=== PATIENT | male | born 1940 | race Caucasian/White ===

== ENCOUNTER 2016-09-29 12:41 | Emergency (ER) | payer MEDICARE, OTHER ==
[~2016-09-29] VITALS: Ht 182.9 cm; Wt 105.0 kg
[2016-09-29 12:44] VITALS: BP 90/46; PULSE 91; RESP 15; O2SAT 97
[2016-09-29] MEDS ORDERED: ZYL100 PO (13:00)
[2016-09-29] MEDS ORDERED: LISI-567 PO (13:00)
[2016-09-29] MEDS ORDERED: TRAZ-115 PO (13:00)
[2016-09-29] MEDS ORDERED: INSU100I28 SQ (13:00)
[2016-09-29] MEDS ORDERED: INSU100C8 SUBQ (13:00)
[2016-09-29] MEDS ORDERED: DESL5TAB PO (13:00)
[2016-09-29] MEDS ORDERED: MONT10TA23 PO (13:00)
[2016-09-29] MEDS ORDERED: UMEC1DIS IH (13:00)
[2016-09-29] MEDS ORDERED: ASPI-973 PO (13:00)
[2016-09-29] MEDS ORDERED: DULA1.5P SQ (13:00)
[2016-09-29] MEDS ORDERED: OMEP20TA24 PO (13:00)
[2016-09-29] MEDS ORDERED: LOVA20TA PO (13:00)
[2016-09-29] MEDS ORDERED: MOME17SP NS (13:00)
[2016-09-29] MEDS ORDERED: ALBU8.5H2 INHALATION (13:00)
[2016-09-29 13:41] LABS: BASOPHILS % (AUTO) 0.3 % (0-3); EOSINOPHILS % (AUTO) 2.6 % (0-5); MONOCYTES % (AUTO) 9.7 % (4-12); Mean Corpuscular Hemoglobin 29.1 pg (27.0-35.0); Mean Corpuscular Volume 90.8 fL (81-100); NEUTROPHILS % (AUTO) 78.5 % (40-74); Platelet Count 258 bil/L (150-400)
[2016-09-29 13:57] LABS: Magnesium 1.7 mg/dL (1.6-2.6)
[2016-09-29] MEDS ORDERED: 0.9% Sodium Chloride 1,000 ML IV SCH (14:50)
--- NOTE | 2016-09-29 14:54 | ED.REPORT ---
HPI-Dizziness / Weakness Date of Service Sep 29, 2016 ED Provider: Yao Anna PA-C Vishnu is a 76-year-old male with a history of diabetes presenting with a chief complaint of low blood pressure. Patient reports becoming weak and lightheaded after stepping out of his vehicle this morning. Sensation subsided after sitting down for a while. Noted low blood pressure on his home device. Patient states that he is traveling, staying in his RV. 2 weeks ago while in [place] he underwent a cholecystectomy and was discharged from the hospital on ciprofloxacin and an unknown second antibiotic. He reports taking these diligently for 10 days, which resulted in diarrhea. He states the diarrhea continues. He reports he has been restricting fluid intake in an attempt to reduce diarrhea. Denies other complaints. Nursing Notes Stated Complaint: POSSIBLE LOW BLOOD PRESSURE Chief Complaint: Male Abdominal Pain Nursing Notes Reviewed: Yes Allergies: Coded Allergies: No Known Allergies (Unverified , 09/29/16) Scheduled Albuterol HFA (Proair HFA) 8.5 Gm Hfa.aer.ad 2 PUFFS INHALATION Q4H Allopurinol (Allopurinol) 100 Mg Tablet 100 MG PO DAILY Aspirin (Aspirin) 81 Mg Tablet 81 MG PO DAILY Desloratadine (Desloratadine) 5 Mg Tab.rapdis 5 MG PO am Dulaglutide (Trulicity) 1.5 Mg/0.5 Ml Pen.injctr 1.5 MG SQ WEEKLY Insulin Aspart (NovoLOG U100 Insulin Vial) 100 U/Ml U 1 UNIT SUBQ TID Insulin Degludec (Tresiba Flextouch U-100) 100 Unit/Ml (3 Ml) Insuln.pen 40 UNIT SQ HS Lisinopril (Lisinopril) 20 Mg Tablet 20 MG PO DAILY Lovastatin (Lovastatin) 20 Mg Tablet 20 MG PO HS Montelukast (Montelukast) 10 Mg Tablet 10 MG PO am Omeprazole Magnesium (Prilosec Otc) 20 Mg Tablet.dr 20 MG PO HS Trazodone (Trazodone) 50 Mg Tablet 50 MG PO HS Umeclidinium Brm/Vilanterol Tr (Anoro Ellipta 62.5-25 Mcg INH) 1 Each Disk.w.dev 1 EACH IH DAILY Scheduled PRN Mometasone Furoate (Nasonex) 17 Gm Kamiah.pump 1 SPRAY NS DAILY PRN PRN congestion General Time Seen by MD: 14:32 Chief Complaint Lightheaded Past Medical History Past Medical History Diabetes Past Surgical History Bilateral below-knee amputation Review of Systems General: Denies fever, chills, malaise. HEENT: Denies congestion, headache, sore throat. Respiratory: Denies dyspnea, cough, shortness of breath, wheezing. Cardiovascular: Denies chest pain, palpitations. Gastrointestinal: Admits diarrhea, denies vomiting, abdominal pain Genitourinary: Denies frequency, urgency, dysuria, hematuria. Otherwise as noted in HPI. Physical Exam General: Well appearing, well developed, well nourished, no acute distress. Head: Atraumatic, normocephalic. Eyes: No scleral icterus or injection. No discharge. Vision grossly intact. ENT: Voice clear, hearing grossly intact. Respiratory: Regular rate and rhythm. Breath sounds present, clear to auscultation and equal bilaterally. No respiratory distress. No increased work of breathing, speaks in complete sentences. Cardiovascular: Regular rate and rhythm, without murmur, gallop or rub. No pedal edema. Gastrointestinal: Abdomen protuberant with extremely mild tenderness in the right upper quadrant. Otherwise Non-tender without guarding or rebound. Bowel sounds normoactive. Laparoscopic cholecystectomy sites are dry and appear to be healing well without tenderness or erythema. No bruising noted. Legs: Bilateral [id number]-gyxy amputations. Skin: Warm and dry. Skin intact. Neurological: Grossly nonfocal. Psychological: Alert and oriented. Speech appropriate, linear and logical. Behavior appropriate. Initial Vital Signs Vital Signs (First) Date Time Temp Pulse Resp B/P Pulse Ox O2 Delivery O2 Flow Rate FiO2 09/29/16 12:44 37.0 91 15 90/46 97 Room Air Hypotension Interpretation & Diagnostics Lab Results Interpretation Result Diagram: 09/29/16 1300 09/29/16 1300 Test 09/29/16 13:00 White Blood Count 14.8th/mm3 (3.8-10.1) Red Blood Count 3.58mil/mm3 (4.40-5.80) Hemoglobin 10.4g/dL (13.8-17.2) Hematocrit 32.5% (41.0-50.0) Mean Corpuscular Volume 90.8fL (81-100) Mean Corpuscular Hemoglobin 29.1pg (27.0-35.0) Mean Corpuscular Hemoglobin Concent 32.0% (32.0-37.0) Red Cell Distribution Width 14.4% (12.3-15.4) Platelet Count 258bil/L (150-400) Neutrophils (%) (Auto) 78.5% (40-74) Lymphocytes (%) (Auto) 8.4% (14-46) Monocytes (%) (Auto) 9.7% (4-12) Eosinophils (%) (Auto) 2.6% (0-5) Basophils (%) (Auto) 0.3% (0-3) Sodium Level 138mEq/L (134-144) Potassium Level 5.2mEq/L (3.5-5.2) Chloride Level 106mEq/L (97-108) Carbon Dioxide Level 18mmol/L (18-29) Blood Urea Nitrogen 22mg/dL (8-27) Creatinine 1.61mg/dL (0.76-1.27) Estimat Glomerular Filtration Rate 45mL/min (>59) Glucose Level 132mg/dL (60-99) Calcium Level 8.7mg/dL (8.5-10.1) Magnesium Level 1.7mg/dL (1.6-2.6) Total Bilirubin 0.4mg/dL (0.0-1.2) Aspartate Amino Transf (AST/SGOT) 33U/L (0-50) Alanine Aminotransferase (ALT/SGPT) 23U/L (0-44) Alkaline Phosphatase 75U/L (25-160) Total Protein 6.3g/dL (6.4-8.4) Albumin 3.2g/dL (3.4-5.0) Lipase 19U/L (13-60) Re-Eval/Medical Decision Med Decision/Clinical Course 76-year-old male with a history of diabetes chief complaint of lightheadedness and weakness upon rising from a seated position earlier today. Noted low blood pressure on home device. Patient reports restricting fluid intake and attempt to curb diarrhea which has been present since a cholecystectomy 2 weeks ago. Further questioning reveals that it is better described as loose stool rather than watery diarrhea. Physical examination reveals a well-appearing gentleman, extremely slight tenderness in the right upper quadrant of the abdomen, laparoscopic cholecystectomy scars healing well. Noted to be hypotensive at triage, otherwise normal vital signs. CBC, CMP, stool PCR after are drawn, treated with 2 L normal saline. CBC reveals a mild leukocytosis at 8 as well as mild anemia. Creatinine is high at 1.61. Glucose is normal nonfasting of 132. Lipase is normal. Patient reports significant improvement after 2 L normal saline. Blood pressure is improved to 111/48, though still low. Stable with orthostatic changes. The patient tells me that his blood pressure has been lower than usual for several weeks, and was noted to be around 115 systolic around the time of this cholecystectomy. Discussed case with Dr. medina, we feel that this episode is most likely caused by dehydration and he is stable and safe to be discharged. I was initially concerned about sepsis considering leukocytosis in the context of hypotension, however the patient appears extremely well. The leukocytosis is most likely secondary to a recent cholecystectomy. We also discussed treating empirically for C. difficile, however the clinical picture does not fit the expected copious watery diarrhea. Moderate hypotension continues but appears to be stable, without significant orthostatic changes and consistent with previous readings over recent weeks per the patient. Patient reports that he is traveling to the region but lived here previously and has a physician he can follow up with. We discussed withholding lisinopril for the next several days and monitoring blood pressure. Patient is eager to be discharged, and I provided strict return precautions. Patient and his verbalize understanding of and consent to the plan. Patient Discharge & Departure Impression: Primary Impression: Dehydration Disposition: Home Discharge Condition All VS Reviewed: Yes Condition: Stable Patient Instructions: Dehydration (ED) Additional Instructions: Evaluation for lightheadedness and low blood pressure in the emergency department consists of history, physical examination and blood work, all of which are reassuring that this is unlikely to be caused by it immediately dangerous condition. We believe this is most likely dehydration. We did note that she have an elevated white blood cell count or blood work. This can indicate infection. This could be a result of the recent surgery. Because you otherwise feel so well, I feel that we can keep an eye on this for a while. Please follow-up with your primary care physician early next week. We have taken stool samples because of your complaint of diarrhea. We should get results from this in a few days. If he has not heard from us in 5 days, please contact the hospital. Return to emergency department for any new or worsening symptoms including new pain, fever, bloody stool, vomiting. Referrals: OTHER,PHYSICIAN (PCP) Dr Anne EDSupervising Provider for APC: Boo Medina MD, Seth PA-C Sep 29, 2016 14:54
[2016-09-29 16:22] VITALS: BP_SYST 100; BP_SYST 111; BP_DIAS 48; BP_DIAS 50; PULSE 86; PULSE 90
[2016-09-29 16:23] VITALS: BP 93/50; PULSE 91
[2016-09-29 17:50] VITALS: BP 103/52; PULSE 90; RESP 15; O2SAT 97
[2016-10-01] MEDS ORDERED: VANC125C3 PO (10:02)
== END 2016-09-29 17:50 | disposition home or self-care (01) ==
LOC: SED 12:41
DX: E86.0 Dehydration (principal); R42 Dizziness and giddiness; R53.1 Weakness; R19.7 Diarrhea, unspecified; E11.9 Type 2 diabetes mellitus without complications; Z96.653 Presence of artificial knee joint, bilateral; Z79.82 Long term (current) use of aspirin; Z79.4 Long term (current) use of insulin
CPT/HCPCS: 36415; 80053; 83690; 83735; 85025; 87507; 96360; 96361; 99284; J7030